=== PATIENT | male | born 1985 | race Caucasian/White ===

== ENCOUNTER 2020-04-20 17:07 | Emergency (ER) | payer OTHER ==
[2020-04-20 17:15] VITALS: BP 146/83
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
== END 2020-04-20 17:35 | disposition home or self-care (01) ==
LOC: ED 17:07
DX: S06.0X0A Concussion without loss of consciousness, initial encounter (principal); S00.83XA Contusion of other part of head, initial encounter; Y04.2XXA Assault by strike against or bumped into by another person, initial encounter; R03.0 Elevated blood-pressure reading, without diagnosis of hypertension
CPT/HCPCS: 99281; 99282